=== PATIENT | male | born 1985 | race Caucasian/White ===

== ENCOUNTER → 2025-02-22 | Outpatient (CLI) | payer BC, SELFPAY ==
[2025-02-22 15:36] LABS: Cholesterol 185 mg/dL (<=200); Low Density Lipoprotein Calc. 118 mg/dL; Triglycerides 145 mg/dL; Very Low Density Lipoprotein 29 mg/dL (5-40); Vitamin D,25 Hydroxy 17.3 ng/mL (30-100); cholesterol:hdl ratio screen 4.87
== END | disposition home or self-care (01) ==
LOC: MTLAB 11:32
PROVIDERS: PCP Internal Medicine; Referring Provider Internal Medicine; Visit Provider Internal Medicine
DX: E55.9 Vitamin D deficiency, unspecified (principal); R73.09 Other abnormal glucose; Z13.220 Encounter for screening for lipoid disorders; F32.9 Major depressive disorder, single episode, unspecified
CPT/HCPCS: 36415; 80061; 82306; 83036; 84443